=== PATIENT | female | born 1985 | race Caucasian/White ===

== ENCOUNTER 2018-04-07 17:15 | Emergency (ER) | payer BC ==
--- NOTE | 2018-04-07 18:21 | ED PDOC ---
Arrival/HPI - General Chief Complaint: Burn Time Seen by Provider: 04/07/18 17:19 Historian: Patient - History of Present Illness Narrative History of Present Illness (Text): 04/07/18 18:33 32yr old female presents today with durán to the face and neck after laser hair removal yesterday. 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 pt states after the treatment yesterday the fa ce and neck were extremely red and painful and now she has multiple areas of discoloration. pt denies fever/chills. pt states she called the dermatology office and they told her that if she came to the ER to get a referral they would see her in the office. no other complaints. Past Medical History - Provider Review Nursing Documentation Reviewed: Yes - Travel History Have you recently traveled outside [place] w/in the past 3 mons?: No - Infectious Disease Hx of Infectious Diseases: None - Reproductive Menopause: No - Past Medical History Past Medical History: Non-Contributing - Cardiac Hx Cardiac Disorders: No - Pulmonary Hx Respiratory Disorders: No - Neurological Hx Neurological Disorder: No - HEENT Hx HEENT Disorder: No - Renal Hx Renal Disorder: No - Endocrine/Metabolic Hx Endocrine Disorders: No - Hematological/Oncological Hx Blood Disorders: No - Integumentary Hx Dermatological Disorder: No - Musculoskeletal/Rheumatological Hx Musculoskeletal Disorders: No - Gastrointestinal Hx Gastroesophageal Reflux: Yes - Genitourinary/Gynecological Hx Genitourinary Disorders: No - Psychiatric Hx Psychophysiologic Disorder: No Hx Substance Use: No - Past Surgical History Past Surgical History: No Previous - Anesthesia Hx Anesthesia: No - Suicidal Assessment Feels Threatened In Home Enviroment: No Family/Social History - Physician Review Nursing Documentation Reviewed: Yes Family/Social History: Unknown Family HX Smoking Status: Never Smoked Hx Alcohol Use: No Hx Substance Use: No Allergies/Home Meds Allergies/Adverse Reactions: Allergies No Known Allergies Allergy (Verified 07/22/14 17:46) Review of Systems - Review of Systems Constitutional: absent: Fatigue, Fevers Respiratory: absent: SOB, Cough Cardiovascular: absent: Chest Pain, Palpitations Gastrointestinal: absent: Abdominal Pain, Nausea, Vomiting Skin: Other (durán) Psychiatric: absent: Anxiety, Depression Physical Exam Vital Signs Reviewed: Yes Vital Signs Temp Pulse Resp BP Pulse Ox 04/07/18 17:34 97.8 F 98 H 18 113/73 98 Temperature: Afebrile Blood Pressure: Normal Pulse: Regular Respiratory Rate: Normal Appearance: Positive for: Well-Appearing, Non-Toxic, Comfortable Pain Distress: None Mental Status: Positive for: Alert and Oriented X 3 - Systems Exam Head: Present: Other (there is a round 2cm round area of hyperpigmentation without blistering noted to the right cheek, there is a small area of hyperpigmentation noted to the left cheek and multiple areas of hyperpigmentation noted to the left side of the neck without tenderness. no erythema; no blistering. no discharge) Mouth: Present: Moist Mucous Membranes Neck: Present: Normal Range of Motion Respiratory/Chest: Present: Clear to Auscultation, Good Air Exchange. No: Respiratory Distress, Accessory Muscle Use Cardiovascular: Present: Regular Rate and Rhythm, Normal S1, S2. No: Murmurs Neurological: Present: GCS=15, Speech Normal Skin: Present: Warm, Dry Psychiatric: Present: Alert, Oriented x 3 Medical Decision Making ED Course and Treatment: 04/07/18 18:38 32yr old female presents with durán to face from laser hair treatment yesterday. pt is non toxic well appearing; no distress. no blistering noted. no erythema. pt was advised to f/u with wood and wood products labourer and apply bacitracin three times daily. pt states she will f/u with dr. cerna tomorrow. Patient verbalizes understanding of discharge instructions and need for immediate followup. all aspects of this case were discussed the attending of record. impression; burn Apply bacitracin three times daily to the affected areas follow up with the wood and wood products labourer within the next 2 days return if symptoms worsen,persist or if new symptoms develop. Disposition/Present on Arrival - Present on Arrival Any Indicators Present on Arrival: No History of DVT/PE: No History of Uncontrolled Diabetes: No Urinary Catheter: No History of Decub. Ulcer: No History Surgical Site Infection Following: None - Disposition Have Diagnosis and Disposition been Completed?: Yes Diagnosis: Burn Disposition: HOME/ ROUTINE Disposition Time: 18:14 Patient Plan: Discharge Patient Problems: Current Active Problems Problem Status Onset Burn Acute Condition: GOOD Discharge Instructions (ExitCare): Skin Durán Additional Instructions: Apply bacitracin three times daily to the affected areas follow up with the wood and wood products labourer within the next 2 days return if symptoms worsen,persist or if new symptoms develop. Referrals: Myrtle Cerna MD [Staff Provider] - Follow up with primary Navneet Rose MD [Primary Care Provider] - Follow up with primary Dermatology, [facility] [Other] - Follow up with primary Forms: HBCS ([place] Citizen), WORK NOTE
[2018-04-08 00:55] VITALS: BP 113/73; PULSE 98; RESP 18; TEMP 98; O2SAT 98; BMI 15.6
== END 2018-04-07 18:32 | disposition home or self-care (01) ==
LOC: ED 17:15
DX: T20.10XA Burn of first degree of head, face, and neck, unspecified site, initial encounter (principal); X08.8XXA Exposure to other specified smoke, fire and flames, initial encounter; Y92.9 Unspecified place or not applicable